=== PATIENT | female | born 1950 | race Caucasian/White ===

== ENCOUNTER 2025-03-02 15:03 | Outpatient (CLI) | payer MEDICARE, SELFPAY ==
--- NOTE | 2025-03-02 15:30 | CRLHL7_ITS ---
For Patients: As a result of the Century Cures Act, medical imaging exams and procedure reports are released immediately into your electronic medical record. You may view this report before your referring provider. If you have questions, please contact your health care provider. INDICATION: Transient neurologic symptoms. Lightheadedness TECHNIQUE: Noncontrast Sagittal T1,Axial FSE T2, Flair, DWI images submitted. No comparisons. FINDINGS: Mild to moderate cerebral atrophy. The ventricles, sulci and gyri are of normal size, shape and contour for age and degree of atrophy. Midline structures are centrally located. No convincing evidence of suspicious intra- or extra-axial fluid collections. Mild patchy regions of increased T2 signal within the periventricular and subcortical white matter of both cerebral hemispheres. No regions of restricted diffusion. IMPRESSION: 1. No radiographic evidence of acute intracranial abnormalities. 2. [id number] cerebral atrophy. 3. Mild supratentorial white matter changes that are non-specific, but statistically most likely related to chronic small vessel ischemic disease. Dictated by Yonis Nice MD @ 03/02/2025 7:02:08 PM (Electronically Signed)
--- OUTSIDE RECORDS SUMMARY | 2025-03-03 00:37 | XMS_ITS | Clinical Summary ---
Author Organization [facility] Address [address] [place] [id number] Care Team Providers Care Key Sander Name Role Phone Yon Noble MD Primary Care Provider [phone] Allergies Active Allergy Reactions Criticality Noted Date Comments Penicillins Rash Medium 08/15/2022 Medications atorvastatin (LIPITOR) 20 mg tablet Take 20 mg by mouth once daily. 07/24/2022 Active Social History Tobacco Use Types Packs/Day Years Used Date Smoking Tobacco: Never Assessed Comments Unknown Sex and Gender Information Value Date Recorded Sex Assigned at Not on file Legal Sex Female 6:22 AM [employer] Gender Identity Not on file Sexual Orientation Not on file Plan of Treatment Health Maintenance Due Date Last Done Comments (IA) Tdap 1959 Depression screening for age 12+ 1960 BMI (ht and wt on same day) for age 18+ 1966 Hepatitis C screening for ag e 18-79 1966 Tetanus booster 1968 Pneumococcal series for age 50+ (1 of 1 - PCV) 1998 Zoster (shingles) series for age 50+ (1 of 2) 1998 DEXA/DXA scan for age 65+ 2013 Medicare Wellness for age 65+ 2013 RSV vaccine for adults or (1 - 1-dose 75+ series) 2023 COVID-19 vaccine series ( - 2023-25 season) 2024 Influenza Vaccine (#1) 2025 Hepatitis B series for 19+ Aged Out N o longer eligible based on patient's age to complete this topic Insurance [facility] MR Care Teams Key Sander Relationship Specialty Start Date End Date Yon Noble MD [address] [place] [phone] PCP - General Family Practice 07/23/22
== END 2025-03-02 15:04 | disposition home or self-care (01) ==
LOC: MRI 15:10
PROVIDERS: PCP Family Medicine; Visit Provider Family Medicine
DX: R29.90 Unspecified symptoms and signs involving the nervous system (principal); G31.9 Degenerative disease of nervous system, unspecified; R42 Dizziness and giddiness
CPT/HCPCS: 70551